=== PATIENT | male | born 1950 | race Hispanic/Latino ===

== ENCOUNTER 2019-08-19 00:34 | Observation (INO) | payer OTHER ==
[2019-08-19 01:20] LABS: BASOPHILS % (AUTO) 0.2 % (0.0-5.0); HEMATOCRIT 35.1 % (42-54); LYMPHOCYTES % (AUTO) 7.5 % (21.0-51.0); MEAN CORPUSCULAR HEMOGLOBIN 31.3 pg (27.0-33.0); MEAN CORPUSCULAR HGB CONC 35.3 g/dL (32.0-36.0); MEAN CORPUSCULAR VOLUME 88.6 fL (79-99); MONOCYTES % (AUTO) 6.2 % (3.0-13.0); NEUTROPHILS % (AUTO) 85.6 % (40.0-77.0); PLATELET COUNT (AUTO) 54 K/uL (130-400); RED BLOOD CELL COUNT(AUTO) 3.96 MIL/uL (4.50-6.20); RED CELL DISTRIBUTION WIDTH 13.5 % (11.0-15.5); WHITE BLOOD COUNT (AUTO) 5.8 K/uL (4.8-10.8)
[2019-08-19 01:27] LABS: INR 1.14 (0.85-1.15); PARTIAL THROMBOPLASTIN TIME 28.4 SEC (26.3-35.5); PROTHROMBIN TIME 12.3 SEC (9.6-11.6)
[2019-08-19 01:32] LABS: CARBON DIOXIDE 24 mmol/L (21-32); CHLORIDE 101 mmol/L (101-111); CREATININE 0.9 mg/dL (0.5-1.5); GLOMERULAR FILTR. RATE CALC 89 mL/min (>60); GLUCOSE,RANDOM 188 mg/dL (70-105); POTASSIUM 3.2 mmol/L (3.5-5.1); SODIUM SERUM 133 mmol/L (136-145); UREA NITROGEN, BLOOD 17 mg/dL (7-18)
[2019-08-19] MEDS ORDERED: ACETAMINOPHEN EXTRA STRENGTH 500 MG TABLET ONE (01:46)
[2019-08-19 01:53] LABS: APPEARANCE,URINE Clear (CLEAR); BILIRUBIN,URINE Small (NEGATIVE); COLOR,URINE Dark Yellow (YELLOW); GLUCOSE, URINE (UA) >=1000 mg/dL (NEGATIVE); KETONES,URINE Trace mg/dL (NEGATIVE); LEUKOCYTE ESTERASE ,URINE Trace (NEGATIVE); NITRATE,URINE Negative (NEGATIVE); OCCULT BLOOD,URINE Large (NEGATIVE); PROTEIN,URINE 300 mg/dL (NEGATIVE)
[2019-08-19 01:58] LABS: ALANINE AMINOTRANSFERASE 29 U/L (12-78); ALBUMIN 2.8 g/dL (3.5-5.0); ASPARTATE AMINOTRANSFERASE 28 U/L (10-37); BILIRUBIN,TOTAL 2.3 mg/dL (0.2-1.0); CREATINE KINASE, TOTAL 168 U/L (21-232); MYOGLOBIN 117 ng/mL (10-92); TOTAL PROTEIN, SERUM 6.4 g/dL (6.0-8.3); TROPONIN I < 0.04 ng/mL (0.00-0.06)
[2019-08-19 02:18] LABS: AMORPHOUS SEDIMENT,UR Many /LPF (None Seen); BACTERIA,URINE Few /HPF (None Seen); MUCUS,URINE Many LPF (None Seen); SQUAMOUS EPITHELIAL CELL,UR Moderate /HPF (0-2)
[2019-08-19 02:26] LABS: PLATELET MORPHOLOGY COMMENT DECREASED
[2019-08-19] MEDS ORDERED: CLINDAMYCIN 600 MG/D5% WATER 50 ML IV ONE (02:51)
[2019-08-19] MEDS ORDERED: CEFTRIAXONE SODIUM 1 GM ONE (02:51)
[2019-08-19] MEDS ORDERED: POTASSIUM BICARB/CIT AC 25 MEQ TABLET.EFF ONE (04:03)
[2019-08-19] MEDS ORDERED: ONDANSETRON HCL 4 MG/2 ML VIAL IVP PRN (06:30)
[2019-08-19] MEDS ORDERED: HYDRALAZINE HCL 20 MG/ML VIAL IV PRN (06:30)
[2019-08-19] MEDS ORDERED: ACETAMINOPHEN 325 MG TAB PO PRN (06:30)
[2019-08-19] MEDS ORDERED: TEMAZEPAM 7.5 MG CAPSULE PO PRN (06:30)
[2019-08-19] MEDS: INSULIN R PO SS1 SQ SCH ×3 (07:30→21:00)
--- NOTE | 2019-08-19 07:30 | NUR ---
GLUCOMETER NOT RECORDED BY PM SHIFT. NO INSULIN GIVEN. PER PROTOCOL.
[2019-08-19] MEDS: FAMOTIDINE 20MG TAB 20 MG TAB PO SCH ×2 (09:00→20:57)
[2019-08-19] MEDS: ENOXAPARIN SODIUM 40 MG/0.4 ML SYRINGE SQ SCH (09:00)
--- NOTE | 2019-08-19 09:00 | NUR ---
ANEUDY HELD, PLT. COUNT IS 54.
[2019-08-19 09:04] VITALS: BP 137/70
[2019-08-19] MEDS ORDERED: CLINDAMYCIN 900 MG/D5% WATER 50 ML IV SCH (10:00)
--- NOTE | 2019-08-19 12:00 | NUR ---
FOUND ON FLOOR IN BATHROOM, STATES GOT UP TO GO TO BR AND SLIPPED, IV DISLODGED, NO EVIDENCE OF ANY SKIN BREAKDOWN, ABLETO MOVE ALL LIMBS WITHOUT ANY > DISCOMFORT. STATES HE NEEDED TO URINATE THATS WHY HE GOT UP. NOTIFIED SON SUMAYA GERARDO AT [phone].ALSO NOTIFIED DEWAYNE RESENDIZP, ORDERS GIVEN AND ENTERED.
[2019-08-19] MEDS ORDERED: POTASSIUM CHLORIDE 20MEQ/100ML 100 ML IV PRN (12:15)
[2019-08-19] MEDS ORDERED: LIDOCAINE HCL-MPF 1% 2ML VIAL IV PRN (12:15)
[2019-08-19 12:52] VITALS: BP 150/69
--- NOTE | 2019-08-19 13:00 | NUR ---
1:[address] TO MONITOR PT[address] BED ALARM ALSO IN USE,PT. STATES HE SLIPPED AND COULDN'T BREAK FALL,STATES HE IS OK AND WILL CALL FOR ASST. SON HAS CALLED FOR UPDATES FREQUENTLY. STATES PT. ALSO FELL AT HOME LAST WEEK. CONSULT WITH DR. WILDER IN PLACE
--- NOTE | 2019-08-19 14:30 | NUR ---
[facility] CM spoke to pt's spouse Jeannette Dawson discussed dc plans. Pt is independent prior to admission, lives at home with spouse. Denies any equipments/services. Feels safe to go back home, spouse and family able to assist with transportation and needs as necessary. DC plan to home once stable. CM to cont to follow up. Addendum: 08/19/19 at 1431 by REZA PATRICIO LVN CM Amended: Links added.
--- NOTE | 2019-08-19 14:35 | NUR ---
TO RAD DEPT. NOW FOR HEAD CT.
[2019-08-19 19:48] VITALS: BP_SYST 141; BP_SYST 144; BP_DIAS 71; BP_DIAS 82
[2019-08-19 19:49] VITALS: BP 146/84
[2019-08-19 19:54] VITALS: BP_SYST 122; BP_SYST 140; BP_DIAS 65; BP_DIAS 86
[2019-08-19 23:30] VITALS: BP 106/61
--- NOTE | 2019-08-19 23:32 | NUR ---
MOVED Pt moved to rm 320,report given to rakesh ibarra.pt has sitter at bedside.
--- NOTE | 2019-08-19 23:47 | NUR ---
Received patient to room 320, checked neuro's within normal limits, oriented x3. Patient with redness, and +2 swelling to LLE. Patient also has discoloration to RLE, and +1 pitting edema. Patient denies any discomfort at this time, encouraged to call as needed. Bed alarm in use and one to one sitter at bedside. Patient denies any discomfort at this time.
[2019-08-20 03:10] VITALS: BP 146/71
[2019-08-20 05:38] LABS: HEMATOCRIT 32.5 % (42-54); MEAN CORPUSCULAR HEMOGLOBIN 31.1 pg (27.0-33.0); MEAN CORPUSCULAR HGB CONC 35.1 g/dL (32.0-36.0); MEAN CORPUSCULAR VOLUME 88.8 fL (79-99); RED BLOOD CELL COUNT(AUTO) 3.66 MIL/uL (4.50-6.20); RED CELL DISTRIBUTION WIDTH 13.3 % (11.0-15.5); WHITE BLOOD COUNT (AUTO) 3.9 K/uL (4.8-10.8)
[2019-08-20 06:05] LABS: CREATININE 0.8 mg/dL (0.5-1.5); POTASSIUM 3.4 mmol/L (3.5-5.1)
[2019-08-20] MEDS: INSULIN R PO SS1 SQ SCH ×3 (07:02→16:30)
[2019-08-20 08:00] VITALS: BP 140/70
[2019-08-20 08:02] VITALS: BP 161/82
[2019-08-20 08:03] VITALS: BP 165/75
[2019-08-20] MEDS ORDERED: CEFTRIAXONE SODIUM 1 GM IVP SCH (09:00)
[2019-08-20] MEDS: FAMOTIDINE 20MG TAB 20 MG TAB PO SCH (09:00)
[2019-08-20] MEDS: ENOXAPARIN SODIUM 40 MG/0.4 ML SYRINGE SQ SCH (09:33)
--- NOTE | 2019-08-20 10:09 | NUR ---
CHART CHECK COMPLETED. Pt IS A 69 Y.O. MALE ADMITTED SECONDARY TO CELLULITIS AND UTI. Pt HAS A PAST MEDICAL HISTORY SIGNIFICANT FOR DM II, CVA, CELLULITIS, THROMBOCYTOPENIA, HYPONATREMIA, HYPOKALEMIA. NO OVERT S/S OF ASPIRATION REPORTED AT THIS TIME. Pt WITH 1:1 SITTER. PLEASE REQUEST SPEECH/SWALLOW EVALUATION IF Pt PRESENTS WITH +S/S OF ASPIRATION SUCH COUGHING, WET VOCAL QUALITY, OR THROAT CLEAR. Addendum: 08/20/19 at 1018 by CARLTON DAO, [facility] Amended: Links added.
[2019-08-20 11:33] VITALS: BP 125/53
[2019-08-20] MEDS ORDERED: ATOR40TA71 PO ×2 (15:48)
[2019-08-20] MEDS ORDERED: INSU100I13 SQ ×2 (15:48)
[2019-08-20] MEDS ORDERED: AMLO5TAB9 PO ×2 (15:48)
[2019-08-20] MEDS ORDERED: FURO20TA4 PO ×2 (15:48)
[2019-08-20] MEDS ORDERED: CEFD300C3 PO ×2 (15:49)
[2019-08-20 16:00] VITALS: BP 155/72
--- NOTE | 2019-08-20 16:32 | NUR ---
CM Note: [facility] pending approval CM met with pt discussed MD ever MEYERS for PT, agreeable. Aware will have to follow up w/PCP as PCP will have to sign off order. Informed pt will send order and clinicals to [facility] to give heads up. HCD will follow up w/PCP for any continuity of care order. Pt safe to DC via private car. Primary nurse aware. CM to cont to follow up. Faxed order, clinicals to [facility], confirmation received. Pt pending approval for HH. CM to con to follow up.
--- NOTE | 2019-08-20 19:17 | NUR ---
CALLED TO CLARIFY BEFORE DISCHARGE ON BLOOD CULTURES ONE SET SHOWING GRAM POS COCCI TAKEN ON 08/18. SPOKE WITH Eric GARCIA ,PER SMALL MACHINE BINDERY OPERATOR REVIEW ON MICRO OTHER SETS NEGATIVE AND MOST LIKELY A CONTAMINATE. PER SMALL MACHINE BINDERY OPERATOR SENT ANTIBIOTIC SCRIPT ELECTRONICALLY TO PATIENTS PHARMACY .
--- NOTE | 2019-08-20 20:11 | NUR ---
DISCHARGE INSTRUCTION PROVIDED TO PATIENT ALONG WITH INSTRUCTION TO ZIGZAG TUNNEL ELASTIC OPERATOR PRESCRIPTION .CALLED AND SPOKE WITH ANAIS HERE TO ZIGZAG TUNNEL ELASTIC OPERATOR PATIENT . ALSO LET HIM KNOW TO MAKE SURE TO ZIGZAG TUNNEL ELASTIC OPERATOR ANTIBIOTIC SCRIPT AT [facility] IN [facility] . PER PATIENT AND SON VERBALIZE UNDERSTANDING..
== END 2019-08-20 20:00 | disposition home or self-care (01) ==
LOC: EDH 00:34 → EDHIP 05:28 → 3BH 05:49 → 3CH 23:30
PROVIDERS: ADMIT Internal Medicine Critical Care Medicine; ATTEND Internal Medicine Critical Care Medicine
DX: N39.0 Urinary tract infection, site not specified (principal); L03.116 Cellulitis of left lower limb; E11.9 Type 2 diabetes mellitus without complications; D69.6 Thrombocytopenia, unspecified; E78.5 Hyperlipidemia, unspecified; E87.1 Hypo-osmolality and hyponatremia; H53.2 Diplopia; Z87.891 Personal history of nicotine dependence; E87.6 Hypokalemia; M79.662 Pain in left lower leg; R55 Syncope and collapse; Z79.4 Long term (current) use of insulin; Z79.899 Other long term (current) drug therapy; Z86.73 Personal history of transient ischemic attack (TIA), and cerebral infarction without residual deficits
CPT/HCPCS: 36415 ×2; 70450 ×2; 70551; 71045 ×2; 71250; 80048; 80053; 81001; 82550; 82728; 82948 ×6; 83605 ×2; 83874; 84145; 84484; 85025; 85027; 85378; 85610; 85730; 86140; 87040 ×4; 87077; 87088; 87186; 93005; 93306; 93356; 93880; 93970; 96365; 96372; 96375; 99285; G0378 ×20; J0696 ×2; J1650; J3490 ×2

== ENCOUNTER → 2019-08-27 | Outpatient (CLI) | payer OTHER ==
[~2019-08-27] MED LIST: AMLO5TAB9 PO; ATOR40TA71 PO; CEFD300C3 PO; FURO20TA4 PO; FURO40TA7 PO; HYDR12.54 PO; INSU100I13 SQ; LISI40TA4 PO; POTA20TA82 PO; SPIR50TA5 PO; TAMS-1 PO
== END | disposition home or self-care (01) ==
LOC: SHCH 13:19
PROVIDERS: ATTEND Internal Medicine Cardiovascular Disease
DX: I87.2 Venous insufficiency (chronic) (peripheral) (principal)
CPT/HCPCS: 93925; 93970

== ENCOUNTER 2019-10-07 16:47 | Observation (INO) | payer OTHER ==
[~2019-10-07] VITALS: Ht 162.6 cm; Wt 116.4 kg
[~2019-10-07 16:47] MED LIST changes: -FURO40TA7 PO; -HYDR12.54 PO; -LISI40TA4 PO; -POTA20TA82 PO; -SPIR50TA5 PO; -TAMS-1 PO
[2019-10-07 17:22] LABS: BASOPHILS % (AUTO) 0.7 % (0.0-5.0); EOSINOPHILS % (AUTO) 6.5 % (0.0-8.0); LYMPHOCYTES % (AUTO) 25.3 % (21.0-51.0); MEAN CORPUSCULAR HEMOGLOBIN 31.7 pg (27.0-33.0); MEAN CORPUSCULAR HGB CONC 35.6 g/dL (32.0-36.0); MEAN CORPUSCULAR VOLUME 89.1 fL (79-99); MONOCYTES % (AUTO) 8.6 % (3.0-13.0); NEUTROPHILS % (AUTO) 58.6 % (40.0-77.0); PLATELET COUNT (AUTO) 88 K/uL (130-400); RED BLOOD CELL COUNT(AUTO) 3.03 MIL/uL (4.50-6.20); RED CELL DISTRIBUTION WIDTH 14.1 % (11.0-15.5); WHITE BLOOD COUNT (AUTO) 2.9 K/uL (4.8-10.8)
[2019-10-07 17:37] LABS: ALBUMIN 1.6 g/dL (3.5-5.0); BILIRUBIN,TOTAL 0.7 mg/dL (0.2-1.0); TOTAL PROTEIN, SERUM 5.3 g/dL (6.0-8.3)
[2019-10-07 17:40] LABS: B-TYPE NATRIURETIC PEPTIDE 94 pg/mL (0-100)
[2019-10-07] MEDS ORDERED: FUROSEMIDE 10 MG/ML 4ML VIAL ONE (17:45)
[2019-10-07 18:01] LABS: BAND NEUTROPHILS % (MANUAL) 1 % (0-2); EOSINOPHILS % (MANUAL) 5 % (1-6); LYMPHOCYTES % (MANUAL) 23 % (22-44); MONOCYTES % (MANUAL) 4 % (2-9); SEGMENTED NEUTROPHILS % 67 % (40-70)
[2019-10-07 18:02] LABS: MAN.DIFF COMMENT-IMPRESSION MANUAL DIFFERENTIAL
[2019-10-07] MEDS ORDERED: MORPHINE SULFATE 2 MG/ML 1ML SYG IV PRN (21:30)
[2019-10-07] MEDS ORDERED: LACTULOSE 20 GM/30 ML UDCUP PO PRN (21:30)
[2019-10-07] MEDS ORDERED: ONDANSETRON HCL 4 MG/2 ML VIAL IV PRN (21:30)
[2019-10-07] MEDS ORDERED: ACETAMINOPHEN 325 MG TAB PO PRN (21:30)
[2019-10-07] MEDS ORDERED: HYDRALAZINE HCL 20 MG/ML VIAL IV PRN (21:30)
[2019-10-07 22:37] LABS: INR 0.99 (0.85-1.15); PROTHROMBIN TIME 10.7 SEC (9.6-11.6)
--- NOTE | 2019-10-07 22:50 | NUR ---
Admission note: Admitted to floor via stretcher. Fully awake and responsive. AOX4. Placed in bed according to pt. comfort. VS checked and recorded. Assessment done. ( See CPOE flow chart for full assessment) Denies pain / discomfort. Verbalized he felt better this time. Has IV site #20 gauge to left hand attached to SL - patent and intact. Plan of care initiated. Hooked to tele at bedside as ordered with SR 70's. US Abdomen and scrotum done as ordered at bedside. Has pinkish-red discoloration to bilat. lower leg. Venous doppler to bilat LE done in ER. Pt verbalized that he has it since then and it comes and goes. Observed for any unusualities. No apparent distress noted. Cared for and needs attended.
[2019-10-07 22:52] VITALS: BP 159/72
[2019-10-07] MEDS ORDERED: TAMS-1 PO (23:46)
[2019-10-07] MEDS ORDERED: SPIR50TA5 PO (23:46)
[2019-10-07] MEDS ORDERED: POTA20TA82 PO (23:46)
[2019-10-07] MEDS ORDERED: LISI40TA4 PO (23:46)
[2019-10-07] MEDS ORDERED: FURO40TA7 PO (23:46)
[2019-10-07] MEDS ORDERED: HYDR12.54 PO (23:46)
[2019-10-08 03:36] VITALS: BP 124/61
[2019-10-08 04:00] LABS: BASOPHILS % (AUTO) 0.4 % (0.0-5.0); EOSINOPHILS % (AUTO) 6.6 % (0.0-8.0); LYMPHOCYTES % (AUTO) 26.2 % (21.0-51.0); MEAN CORPUSCULAR HGB CONC 35.2 g/dL (32.0-36.0); MEAN CORPUSCULAR VOLUME 88.1 fL (79-99); MONOCYTES % (AUTO) 9.8 % (3.0-13.0); NEUTROPHILS % (AUTO) 56.6 % (40.0-77.0); PLATELET COUNT (AUTO) 75 K/uL (130-400); RED BLOOD CELL COUNT(AUTO) 2.61 MIL/uL (4.50-6.20); WHITE BLOOD COUNT (AUTO) 2.6 K/uL (4.8-10.8)
[2019-10-08 04:15] LABS: ALBUMIN 1.3 g/dL (3.5-5.0); BILIRUBIN,TOTAL 0.6 mg/dL (0.2-1.0); CREATININE 0.9 mg/dL (0.5-1.5); MAGNESIUM 1.7 mg/dL (1.80-2.40); POTASSIUM 3.6 mmol/L (3.5-5.1); TOTAL PROTEIN, SERUM 4.5 g/dL (6.0-8.3)
[2019-10-08] MEDS: INSULIN HUMULIN R 100 UNIT/ML 3ML SQ SCH ×4 (05:42→20:23)
[2019-10-08 07:49] VITALS: BP 133/59
[2019-10-08] MEDS ORDERED: ENOXAPARIN SODIUM 40 MG/0.4 ML SYRINGE SQ SCH (09:00)
[2019-10-08] MEDS ORDERED: FAMOTIDINE 20MG TAB 20 MG TAB PO SCH (09:00)
[2019-10-08] MEDS ORDERED: ASPIRIN 81 MG EC TAB PO SCH (09:00)
--- NOTE | 2019-10-08 09:39 | NUR ---
CHART CHECK COMPLETED. Pt IS A 69 Y.O. MALE ADMITTED SECONDARY TO ANASARCA, CIRRHOSIS. Pt HAS A PAST MEDICAL HISTORY SIGNIFICANT FOR DMII, MORBID OBESITY, HYPERTENSION, THROMBOCYTOPENIA, TIA/CVA, DYSLIPIDEMIA. Pt CURRENTLY ON REGULAR TEXTURE,THIN LIQUID DIET (CONSISTENT CARB). PLEASE REQUEST FORMAL SKILLED SPEECH/SWALLOW EVALUATION IF Pt PRESENTS WITH +S/S OF ASPIRATION SUCH COUGH RESPONSE, THROAT CLEAR, OR WET VOCAL QUALITY DURING P.O. Addendum: 10/08/19 at 0941 by CARLTON DAO, [facility] Amended: Links added.
[2019-10-08] MEDS: FUROSEMIDE 10 MG/ML 4ML VIAL IVP SCH ×2 (10:10→20:25)
[2019-10-08] MEDS: LOSARTAN 50 MG TABLET PO SCH (10:10)
[2019-10-08] MEDS: FAMOTIDINE 20MG TAB 20 MG TAB PO SCH ×2 (10:10→20:25)
[2019-10-08 11:33] VITALS: BP 139/68
[2019-10-08] MEDS: MAGNESIUM 2GM PREMIX 50ML 50 ML IV SCH (16:38)
[2019-10-08 16:48] VITALS: BP 140/72
[2019-10-08 20:29] VITALS: BP 155/59
[2019-10-08] MEDS ORDERED: TAMSULOSIN HCL 0.4 MG CAP.ER.24H PO SCH (21:00)
[2019-10-08] MEDS ORDERED: ATORVASTATIN CALCIUM 10 MG TABLET PO SCH (21:00)
[2019-10-09 00:26] VITALS: BP 132/59
[2019-10-09 03:49] LABS: BASOPHILS % (AUTO) 0.4 % (0.0-5.0); EOSINOPHILS % (AUTO) 6.9 % (0.0-8.0); HEMATOCRIT 23.6 % (42-54); LYMPHOCYTES % (AUTO) 27.7 % (21.0-51.0); MEAN CORPUSCULAR HEMOGLOBIN 31.7 pg (27.0-33.0); MEAN CORPUSCULAR VOLUME 88.1 fL (79-99); PLATELET COUNT (AUTO) 75 K/uL (130-400); RED BLOOD CELL COUNT(AUTO) 2.68 MIL/uL (4.50-6.20); RED CELL DISTRIBUTION WIDTH 13.9 % (11.0-15.5); WHITE BLOOD COUNT (AUTO) 2.6 K/uL (4.8-10.8)
[2019-10-09 03:52] VITALS: BP 124/67
[2019-10-09 03:56] LABS: B-TYPE NATRIURETIC PEPTIDE 124 pg/mL (0-100)
[2019-10-09 04:04] LABS: CREATININE 0.9 mg/dL (0.5-1.5); MAGNESIUM 1.8 mg/dL (1.80-2.40); PHOSPHORUS 3.7 mg/dL (2.5-4.9); POTASSIUM 3.4 mmol/L (3.5-5.1)
--- NOTE | 2019-10-09 04:15 | NUR ---
Magnesium result: 1.8 Covered per protocol.
[2019-10-09] MEDS: MAGNESIUM 2GM PREMIX 50ML 50 ML IV SCH (04:19)
[2019-10-09] MEDS: INSULIN HUMULIN R 100 UNIT/ML 3ML SQ SCH ×3 (06:41→16:30)
[2019-10-09 08:00] VITALS: BP 143/59
[2019-10-09] MEDS ORDERED: AMLODIPINE BESYLATE 5 MG TAB PO SCH (09:00)
[2019-10-09] MEDS ORDERED: SPIRONOLACTONE 25 MG TAB PO SCH (09:00)
[2019-10-09] MEDS ORDERED: LISINOPRIL 40 MG TABLET PO SCH (09:00)
[2019-10-09] MEDS ORDERED: INSULIN HUMULIN 70/30 100 UNIT/ML 3ML SQ SCH (09:00)
[2019-10-09] MEDS ORDERED: HYDROCHLOROTHIAZIDE 25 MG TABLET PO SCH (09:00)
[2019-10-09] MEDS: FUROSEMIDE 10 MG/ML 4ML VIAL IVP SCH (10:09)
[2019-10-09] MEDS: LOSARTAN 50 MG TABLET PO SCH (10:10)
[2019-10-09] MEDS: FAMOTIDINE 20MG TAB 20 MG TAB PO SCH (10:11)
[2019-10-09 12:00] VITALS: BP 137/65
[2019-10-09] MEDS ORDERED: FURO40TA7 PO (14:12)
--- NOTE | 2019-10-09 14:55 | NUR ---
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 KATHY faxed Cirrhosis (3 pages) and Diabetes (4 pages) Nutrition education to [phone]). Pending fax. RN to be notified. NUTRITION NOTE: Pt admitted with Anasarca, Cirrhosis. LLE 2+ edema. Recommend Low sodium diet order, 6 small meals, 60mL ProMod BID. Addendum: 10/09/19 at [address] Amended: Links added.
--- NOTE | 2019-10-09 17:58 | NUR ---
CHART REVIEWED, INCLUDING PT NOTES STATES SAFE FOR DISCHARGE TO HOME- PATIENT STATES MOBILITY IMPROVING. NO TRIGGERS TO CASE MANAGEMENT DETAILED CM ASSESSMENT DEFERRED Addendum: 10/09/19 at 1801 by TRUNG CHAMBERLAIN RN CM Amended: Links added.
== END 2019-10-09 18:15 | disposition home or self-care (01) ==
LOC: EDH 16:47 → INTOOBSV 19:28 → EDHIP 19:28 → 3BH 22:02
PROVIDERS: ADMIT Internal Medicine Critical Care Medicine; ATTEND Internal Medicine Critical Care Medicine
DX: K74.60 Unspecified cirrhosis of liver (principal); E11.9 Type 2 diabetes mellitus without complications; E66.01 Morbid (severe) obesity due to excess calories; I10 Essential (primary) hypertension; D69.6 Thrombocytopenia, unspecified; R60.1 Generalized edema; E78.5 Hyperlipidemia, unspecified; Z86.73 Personal history of transient ischemic attack (TIA), and cerebral infarction without residual deficits; Z79.4 Long term (current) use of insulin; Z79.899 Other long term (current) drug therapy; Z87.891 Personal history of nicotine dependence
CPT/HCPCS: 36415 ×3; 71045 ×2; 76705; 76870; 80048; 80053 ×2; 82948 ×6; 83735 ×2; 83880 ×3; 84100; 84484 ×3; 85025 ×3; 85610; 85730; 93005; 93970; 94660; 96365; 96366; 96375; 96376 ×2; 97039 ×2; 97116 ×2; 97161; 99285; G0378 ×6; G8978; G8979; G8980; G8981; G8982; G8983; J1815; J1940 ×4; J3475 ×2

== ENCOUNTER → 2019-10-29 | Outpatient (CLI) | payer OTHER ==
[~2019-10-29] MED LIST changes: -CEFD300C3 PO; -FURO20TA4 PO; +FURO40TA7 PO; +HYDR12.54 PO; +LISI40TA4 PO; +POTA20TA82 PO; +SPIR50TA5 PO; +TAMS-1 PO
== END | disposition home or self-care (01) ==
LOC: SHCH 14:09
PROVIDERS: ATTEND Internal Medicine Cardiovascular Disease
DX: Z09 Encounter for follow-up examination after completed treatment for conditions other than malignant neoplasm (principal)
CPT/HCPCS: 93971

== ENCOUNTER → 2019-11-25 | Outpatient (CLI) | payer OTHER | END | disposition home or self-care (01) | LOC: SHCH 07:55 | PROVIDERS: ATTEND Internal Medicine Cardiovascular Disease | DX: Z09 Encounter for follow-up examination after completed treatment for conditions other than malignant neoplasm (principal); I87.2 Venous insufficiency (chronic) (peripheral) | CPT/HCPCS: 93971 ==

== ENCOUNTER 2020-05-12 11:45 | Inpatient (IN) | payer OTHER ==
[~2020-05-12] VITALS: Ht 162.6 cm; Wt 114.1 kg
[~2020-05-12 11:45] MED LIST changes: +AMLO-257 PO; -AMLO5TAB9 PO; -LISI40TA4 PO; +LISI40TA9 PO; +POTA-202 PO; -POTA20TA82 PO
[2020-05-12 12:18] LABS: BASOPHILS % (AUTO) 0.5 % (0.0-5.0); EOSINOPHILS % (AUTO) 8.5 % (0.0-8.0); HEMATOCRIT 25.9 % (42-54); LYMPHOCYTES % (AUTO) 19.3 % (21.0-51.0); MEAN CORPUSCULAR VOLUME 91.2 fL (79-99); MONOCYTES % (AUTO) 8.5 % (3.0-13.0); PLATELET COUNT (AUTO) 90 K/uL (130-400); RED BLOOD CELL COUNT(AUTO) 2.84 MIL/uL (4.50-6.20); RED CELL DISTRIBUTION WIDTH 13.9 % (11.0-15.5); WHITE BLOOD COUNT (AUTO) 4.3 K/uL (4.8-10.8)
[2020-05-12 12:31] LABS: B-TYPE NATRIURETIC PEPTIDE 688 pg/mL (0-100)
[2020-05-12 12:34] LABS: CREATININE 1.9 mg/dL (0.5-1.5); POTASSIUM 4.6 mmol/L (3.5-5.1)
[2020-05-12 12:38] LABS: ALBUMIN 1.7 g/dL (3.5-5.0); BILIRUBIN,TOTAL 0.9 mg/dL (0.2-1.0); TOTAL PROTEIN, SERUM 5.3 g/dL (6.0-8.3)
[2020-05-12 12:43] LABS: INR 1.13 (0.85-1.15); PROTHROMBIN TIME 11.6 SEC (9.6-11.6)
[2020-05-12] MEDS ORDERED: CEFTRIAXONE 1G VIAL ONE (13:28)
[2020-05-12] MEDS ORDERED: ALBUTEROL INHALER 90MCG/INH IH ONE (13:28)
[2020-05-12] MEDS ORDERED: AZITHROMYCIN 250 MG TABLET PO ONE (13:29)
[2020-05-12] MEDS ORDERED: 0.9%NACL 50ML 50 ML IV ONE (13:30)
[2020-05-12] MEDS ORDERED: FUROSEMIDE 40MG VIAL ONE (14:15)
[2020-05-12] MEDS ORDERED: ZOSYN 3.375GM+NS 50ML 50 ML IV ONE (14:59)
[2020-05-12 15:31] LABS: APPEARANCE,URINE Clear (CLEAR); BILIRUBIN,URINE Negative (NEGATIVE); COLOR,URINE Yellow (YELLOW); GLUCOSE, URINE (UA) Negative (NEGATIVE); KETONES,URINE Negative (NEGATIVE); LEUKOCYTE ESTERASE ,URINE Negative (NEGATIVE); NITRATE,URINE Negative (NEGATIVE); OCCULT BLOOD,URINE Large (NEGATIVE); PROTEIN,URINE 300 mg/dL (NEGATIVE); UROBILINOGEN,URINE 0.2 mg/dL (0.2-1.0)
[2020-05-12] MEDS ORDERED: ACETAMINOPHEN 325 MG TAB PO PRN (16:00)
[2020-05-12 16:32] LABS: BACTERIA,URINE Rare /HPF (None Seen); YEAST,URINE BUDDING Few /HPF (None Seen)
[2020-05-12 16:33] LABS: SQUAMOUS EPITHELIAL CELL,UR Rare /HPF (0-2)
[2020-05-12] MEDS: FUROSEMIDE 40MG VIAL IVP SCH (21:00)
[2020-05-12 21:30] VITALS: BP 179/83
[2020-05-13] VITALS (8 sets, daily range): BP systolic 149–175; BP diastolic 67–86
[2020-05-13] MEDS: PANTOPRAZOLE 40 MG TAB DR PO SCH ×3 (01:45→20:45)
[2020-05-13] MEDS: ZOSYN 3.375GM+NS 50ML 50 ML IV SCH ×4 (01:46→21:01)
[2020-05-13] MEDS: SPIRONOLACTONE 25 MG TAB PO SCH ×3 (01:46→20:45)
[2020-05-13] MEDS: LACTULOSE 20 GM/30 ML UDCUP PO SCH ×3 (01:47→20:46)
[2020-05-13] MEDS ORDERED: LABETALOL 20MG VIAL IV ONE (02:09)
[2020-05-13] MEDS ORDERED: LABETALOL 20MG VIAL IV SCH (02:15)
[2020-05-13 05:51] LABS: MEAN CORPUSCULAR HEMOGLOBIN 30.7 pg (27.0-33.0); MEAN CORPUSCULAR HGB CONC 34.1 g/dL (32.0-36.0); RED CELL DISTRIBUTION WIDTH 13.9 % (11.0-15.5); WHITE BLOOD COUNT (AUTO) 4.6 K/uL (4.8-10.8)
[2020-05-13 05:53] LABS: RETICULOCYTE % (AUTO) 2.9 % (0.42-2.23)
[2020-05-13 06:14] LABS: % IRON SATURATION 49.7 % (30-44)
[2020-05-13 06:36] LABS: ALBUMIN 1.7 g/dL (3.5-5.0); POTASSIUM 3.8 mmol/L (3.5-5.1); TOTAL PROTEIN, SERUM 5.1 g/dL (6.0-8.3)
[2020-05-13] MEDS: FUROSEMIDE 40MG VIAL IVP SCH ×2 (08:50→20:45)
[2020-05-13] MEDS ORDERED: AMLODIPINE 5 MG TAB PO SCH (10:38)
[2020-05-13] MEDS ORDERED: TIZA2CAP9 PO (12:56)
[2020-05-13] MEDS ORDERED: VITAMIN D PO (12:59)
[2020-05-13] MEDS ORDERED: FURO20TA6 PO (13:01)
[2020-05-13] MEDS: SOLU-MEDROL 40MG VIAL IVP SCH (20:45)
[2020-05-14 04:23] VITALS: BP 152/62
[2020-05-14] MEDS: ZOSYN 3.375GM+NS 50ML 50 ML IV SCH ×3 (04:40→20:23)
[2020-05-14 05:23] LABS: BASOPHILS % (AUTO) 0.3 % (0.0-5.0); EOSINOPHILS % (AUTO) 0.3 % (0.0-8.0); HEMATOCRIT 26.8 % (42-54); LYMPHOCYTES % (AUTO) 14.3 % (21.0-51.0); MEAN CORPUSCULAR HEMOGLOBIN 31.5 pg (27.0-33.0); MEAN CORPUSCULAR HGB CONC 34.3 g/dL (32.0-36.0); MEAN CORPUSCULAR VOLUME 91.8 fL (79-99); MONOCYTES % (AUTO) 1.7 % (3.0-13.0); NEUTROPHILS % (AUTO) 82.8 % (40.0-77.0); PLATELET COUNT (AUTO) 100 K/uL (130-400); RED BLOOD CELL COUNT(AUTO) 2.92 MIL/uL (4.50-6.20); WHITE BLOOD COUNT (AUTO) 3.6 K/uL (4.8-10.8)
[2020-05-14 07:52] VITALS: BP 178/75
[2020-05-14 11:14] VITALS: BP 185/75
[2020-05-14] MEDS: LABETALOL 20MG VIAL IV PRN (12:20)
[2020-05-14] MEDS: PANTOPRAZOLE 40 MG TAB DR PO SCH ×2 (12:22→20:23)
[2020-05-14] MEDS: SPIRONOLACTONE 25 MG TAB PO SCH ×2 (12:22→20:23)
[2020-05-14] MEDS: LACTULOSE 20 GM/30 ML UDCUP PO SCH ×2 (12:23→20:22)
[2020-05-14] MEDS: SOLU-MEDROL 40MG VIAL IVP SCH ×2 (12:24→20:23)
[2020-05-14] MEDS: FUROSEMIDE 40MG VIAL IVP SCH ×2 (12:26→20:24)
[2020-05-14 13:52] VITALS: BP 147/70
[2020-05-14 16:06] VITALS: BP 171/71
[2020-05-14 19:41] VITALS: BP 167/66
[2020-05-14] MEDS: ATORVASTATIN 10 MG TABLET PO SCH (20:23)
[2020-05-14] MEDS: HYDROCORTISONE 25 MG SUPPOSITORY PR SCH (21:06)
[2020-05-15] VITALS (9 sets, daily range): BP systolic 107–172; BP diastolic 51–68
[2020-05-15 05:32] LABS: HEMATOCRIT 30.2 % (42-54); MEAN CORPUSCULAR HEMOGLOBIN 30.4 pg (27.0-33.0); MEAN CORPUSCULAR HGB CONC 33.4 g/dL (32.0-36.0); RED BLOOD CELL COUNT(AUTO) 3.32 MIL/uL (4.50-6.20); RED CELL DISTRIBUTION WIDTH 14.2 % (11.0-15.5)
[2020-05-15] MEDS: ZOSYN 3.375GM+NS 50ML 50 ML IV SCH ×3 (05:52→20:46)
[2020-05-15 05:57] LABS: ALBUMIN 1.8 g/dL (3.5-5.0); CREATININE 2.6 mg/dL (0.5-1.5); MAGNESIUM 2.3 mg/dL (1.80-2.40); PHOSPHORUS 5.4 mg/dL (2.5-4.9); POTASSIUM 3.8 mmol/L (3.5-5.1); TOTAL PROTEIN, SERUM 5.6 g/dL (6.0-8.3)
[2020-05-15] MEDS ORDERED: ALBUMIN (HUMAN) 25% 200 ML IV SCH (06:00)
[2020-05-15] MEDS: PANTOPRAZOLE 40 MG TAB DR PO SCH ×2 (09:04→20:46)
[2020-05-15] MEDS: FUROSEMIDE 40MG VIAL IVP SCH (09:04)
[2020-05-15] MEDS: SPIRONOLACTONE 25 MG TAB PO SCH (09:04)
[2020-05-15] MEDS: AMLODIPINE 5 MG TAB PO SCH (09:04)
[2020-05-15] MEDS: TAMSULOSIN HCL 0.4 MG CAP.ER.24H PO SCH (09:04)
[2020-05-15] MEDS: LACTULOSE 20 GM/30 ML UDCUP PO SCH ×2 (09:04→21:00)
[2020-05-15] MEDS: HYDROCORTISONE 25 MG SUPPOSITORY PR SCH (09:05)
[2020-05-15] MEDS: SOLU-MEDROL 40MG VIAL IVP SCH ×2 (09:05→20:46)
[2020-05-15] MEDS: IPRATROPIUM/ALBUTEROL SULFATE 3 ML SOLUTION IH SCH ×3 (13:54→23:55)
[2020-05-15 14:25] LABS: APPEARANCE BODY FLUID SLIGHTLY CLOUDY (CLEAR); COLOR,BODY FLUID COLORLESS (LT YELLOW); SPECIMENTYPE,BODY FLUID ASCITES; TOTAL VOLUME,BODY FLUID 1500 mL
[2020-05-15 14:26] LABS: BODY FLUID RBC 48 /cu. mm.; BODY FLUID WBC 46 /cu. mm.
[2020-05-15 14:31] LABS: BF LYMPHOCYTE 79 %; BF MONOCYTE 16 %
[2020-05-15] MEDS: ALBUMIN (HUMAN) 25% 50 ML IV SCH ×2 (14:38→22:23)
[2020-05-15] MEDS: ATORVASTATIN 10 MG TABLET PO SCH (20:46)
[2020-05-15] MEDS: CEFTRIAXONE 1G VIAL IVP SCH (22:22)
[2020-05-16 03:31] VITALS: BP 154/64
[2020-05-16] MEDS: ALBUMIN (HUMAN) 25% 50 ML IV SCH ×2 (05:44→14:13)
[2020-05-16] MEDS: IPRATROPIUM/ALBUTEROL SULFATE 3 ML SOLUTION IH SCH ×3 (06:14→18:37)
[2020-05-16 07:35] LABS: CREATININE 2.9 mg/dL (0.5-1.5)
[2020-05-16 08:00] VITALS: BP 157/68
[2020-05-16] MEDS: LACTULOSE 20 GM/30 ML UDCUP PO SCH ×2 (09:00→23:57)
[2020-05-16] MEDS: TAMSULOSIN HCL 0.4 MG CAP.ER.24H PO SCH (11:32)
[2020-05-16] MEDS: PANTOPRAZOLE 40 MG TAB DR PO SCH ×2 (11:32→23:58)
[2020-05-16] MEDS: AMLODIPINE 5 MG TAB PO SCH (11:33)
[2020-05-16] MEDS: HYDROCORTISONE 25 MG SUPPOSITORY PR SCH (11:33)
[2020-05-16 12:00] VITALS: BP 168/79
[2020-05-16] MEDS: MIDODRINE HCL 5 MG TABLET PO SCH (14:13)
[2020-05-16] MEDS: OCTREOTIDE ACETATE 100 MCG/ML AMP SQ SCH (14:14)
[2020-05-16 16:00] VITALS: BP 151/77
[2020-05-16 20:04] VITALS: BP 165/72
[2020-05-16] MEDS: ATORVASTATIN 10 MG TABLET PO SCH (23:57)
[2020-05-16] MEDS: CEFTRIAXONE 1G VIAL IVP SCH (23:59)
[2020-05-17] MEDS: OCTREOTIDE ACETATE 100 MCG/ML AMP SQ SCH ×4 (00:01→22:32)
[2020-05-17 00:04] VITALS: BP 142/64
[2020-05-17 04:04] VITALS: BP 160/67
[2020-05-17] MEDS: ALBUMIN (HUMAN) 25% 50 ML IV SCH ×4 (05:26→22:33)
[2020-05-17] MEDS: MIDODRINE HCL 5 MG TABLET PO SCH ×4 (05:26→22:32)
[2020-05-17 05:52] LABS: HEMATOCRIT 24.8 % (42-54); MEAN CORPUSCULAR HEMOGLOBIN 30.5 pg (27.0-33.0); MEAN CORPUSCULAR HGB CONC 33.1 g/dL (32.0-36.0); MEAN CORPUSCULAR VOLUME 92.2 fL (79-99); RED BLOOD CELL COUNT(AUTO) 2.69 MIL/uL (4.50-6.20); RED CELL DISTRIBUTION WIDTH 14.5 % (11.0-15.5); WHITE BLOOD COUNT (AUTO) 5.1 K/uL (4.8-10.8)
[2020-05-17] MEDS: IPRATROPIUM/ALBUTEROL SULFATE 3 ML SOLUTION IH SCH ×4 (06:11→19:49)
[2020-05-17 06:12] LABS: CREATININE 2.3 mg/dL (0.5-1.5)
[2020-05-17 06:31] LABS: PLATELET COUNT (AUTO) 108 K/uL (130-400)
[2020-05-17 08:00] VITALS: BP_SYST 117; BP_SYST 162; BP_DIAS 45; BP_DIAS 75
[2020-05-17] MEDS: LACTULOSE 20 GM/30 ML UDCUP PO SCH ×2 (09:00→20:57)
[2020-05-17] MEDS: HYDROCORTISONE 25 MG SUPPOSITORY PR SCH (09:00)
[2020-05-17] MEDS ORDERED: ONDANSETRON 4MG INJ ONE (09:57)
[2020-05-17] MEDS: AMLODIPINE 5 MG TAB PO SCH (09:59)
[2020-05-17] MEDS: TAMSULOSIN HCL 0.4 MG CAP.ER.24H PO SCH (09:59)
[2020-05-17] MEDS: PANTOPRAZOLE 40 MG TAB DR PO SCH ×2 (10:00→21:04)
[2020-05-17] MEDS ORDERED: ONDANSETRON 4MG INJ IVP PRN (10:00)
[2020-05-17 12:00] VITALS: BP 159/66
[2020-05-17 16:00] VITALS: BP 144/67
[2020-05-17 20:00] VITALS: BP 166/81
[2020-05-17] MEDS: ATORVASTATIN 10 MG TABLET PO SCH (21:04)
[2020-05-17] MEDS: CEFTRIAXONE 1G VIAL IVP SCH (21:05)
[2020-05-17] MEDS: LABETALOL 20MG VIAL IV PRN (21:09)
[2020-05-18] VITALS: BP 149/66
[2020-05-18] MEDS: IPRATROPIUM/ALBUTEROL SULFATE 3 ML SOLUTION IH SCH ×2 (01:09→07:18)
[2020-05-18 04:00] VITALS: BP 153/76
[2020-05-18] MEDS: OCTREOTIDE ACETATE 100 MCG/ML AMP SQ SCH (05:20)
[2020-05-18] MEDS: ALBUMIN (HUMAN) 25% 50 ML IV SCH (05:20)
[2020-05-18] MEDS: MIDODRINE HCL 5 MG TABLET PO SCH (05:22)
[2020-05-18 05:55] LABS: POTASSIUM 4.1 mmol/L (3.5-5.1)
[2020-05-18 07:13] VITALS: BP 154/73
[2020-05-18] MEDS: AMLODIPINE 5 MG TAB PO SCH (10:11)
[2020-05-18] MEDS: TAMSULOSIN HCL 0.4 MG CAP.ER.24H PO SCH (10:11)
[2020-05-18] MEDS: PANTOPRAZOLE 40 MG TAB DR PO SCH (10:11)
[2020-05-18] MEDS: LACTULOSE 20 GM/30 ML UDCUP PO SCH (10:12)
[2020-05-18] MEDS: HYDROCORTISONE 25 MG SUPPOSITORY PR SCH (10:12)
[2020-05-18 10:58] VITALS: BP 153/72
[2020-05-18 15:59] VITALS: BP 161/66
== END 2020-05-18 20:15 | disposition home or self-care (01) | DRG 432 ==
LOC: EDH 11:45 → EDHIP 14:19 → 3BH 21:20
PROVIDERS: ADMIT Internal Medicine; ATTEND Internal Medicine
PROC: 0W9G3ZZ Drainage of Peritoneal Cavity, Percutaneous Approach (ICD-10-PCS; principal; 2020-05-15)
DX: K70.31 Alcoholic cirrhosis of liver with ascites (principal); J18.9 Pneumonia, unspecified organism; K76.7 Hepatorenal syndrome; K65.2 Spontaneous bacterial peritonitis; K76.6 Portal hypertension; N17.9 Acute kidney failure, unspecified; Z68.41 Body mass index [BMI] 40.0-44.9, adult; J81.1 Chronic pulmonary edema; J98.11 Atelectasis; J91.8 Pleural effusion in other conditions classified elsewhere; E87.70 Fluid overload, unspecified; N18.9 Chronic kidney disease, unspecified; I12.9 Hypertensive chronic kidney disease with stage 1 through stage 4 chronic kidney disease, or unspecified chronic kidney disease; E78.00 Pure hypercholesterolemia, unspecified; D69.6 Thrombocytopenia, unspecified; G47.30 Sleep apnea, unspecified; D63.1 Anemia in chronic kidney disease; E11.22 Type 2 diabetes mellitus with diabetic chronic kidney disease; E66.9 Obesity, unspecified; E78.5 Hyperlipidemia, unspecified; Z20.822 Contact with and (suspected) exposure to COVID-19; G51.0 Bell's palsy; Z79.4 Long term (current) use of insulin; Z86.73 Personal history of transient ischemic attack (TIA), and cerebral infarction without residual deficits; Z87.891 Personal history of nicotine dependence; Z79.899 Other long term (current) drug therapy
CPT/HCPCS: 36415; 49083; 71045; 71250; 76770; 80048; 80053; 81001; 82040; 82140; 82550; 82607; 82728; 82948; 83605; 83615; 83735; 83880; 84100; 84145; 84155; 84484; 85025; 85027; 85610; 85730; 87040; 87071; 87205; 87426; 89051; 93005; 93970; 94640; 94664; 99291; C1729; G0378; J0696; J1940; J2354; J2405; J2543; J2920; J3490; P9046; P9047; U0003

== ENCOUNTER 2020-05-25 16:56 | Inpatient (IN) | payer OTHER ==
[~2020-05-25] VITALS: Ht 162.6 cm; Wt 115.3 kg
[~2020-05-25 16:56] MED LIST changes: -FURO40TA7 PO; -HYDR12.54 PO; +TIZA2CAP9 PO; +VITAMIN D PO
[2020-05-25 19:37] LABS: BASOPHILS % (AUTO) 0.4 % (0.0-5.0); EOSINOPHILS % (AUTO) 7.5 % (0.0-8.0); HEMATOCRIT 26.1 % (42-54); MEAN CORPUSCULAR HEMOGLOBIN 31.2 pg (27.0-33.0); MEAN CORPUSCULAR HGB CONC 33.7 g/dL (32.0-36.0); MEAN CORPUSCULAR VOLUME 92.6 fL (79-99); MONOCYTES % (AUTO) 9.3 % (3.0-13.0); NEUTROPHILS % (AUTO) 64.6 % (40.0-77.0); PLATELET COUNT (AUTO) 79 K/uL (130-400); RED BLOOD CELL COUNT(AUTO) 2.82 MIL/uL (4.50-6.20); WHITE BLOOD COUNT (AUTO) 5.6 K/uL (4.8-10.8)
[2020-05-25 19:51] LABS: BILIRUBIN,TOTAL 0.7 mg/dL (0.2-1.0)
[2020-05-25 20:01] LABS: B-TYPE NATRIURETIC PEPTIDE 215 pg/mL (0-100)
[2020-05-25 20:12] LABS: INR 1.04 (0.85-1.15); PROTHROMBIN TIME 11.3 SEC (9.6-11.6)
[2020-05-25 20:14] LABS: PARTIAL THROMBOPLASTIN TIME 24.9 SEC (26.3-35.5)
[2020-05-25] MEDS ORDERED: FUROSEMIDE 40MG VIAL ONE (20:30)
[2020-05-25 21:42] LABS: APPEARANCE,URINE Clear (CLEAR); BILIRUBIN,URINE Negative (NEGATIVE); COLOR,URINE Yellow (YELLOW); GLUCOSE, URINE (UA) Negative (NEGATIVE); KETONES,URINE Negative (NEGATIVE); LEUKOCYTE ESTERASE ,URINE Trace (NEGATIVE); NITRATE,URINE Negative (NEGATIVE); OCCULT BLOOD,URINE Large (NEGATIVE); PROTEIN,URINE 300 mg/dL (NEGATIVE); UROBILINOGEN,URINE 0.2 mg/dL (0.2-1.0)
[2020-05-25 22:17] LABS: BACTERIA,URINE Rare /HPF (None Seen); SQUAMOUS EPITHELIAL CELL,UR Rare /HPF (0-2)
[2020-05-25] MEDS: NITROGLYCERIN 1GM OINT 1 INCH/1GM TD SCH (22:45)
[2020-05-25] MEDS ORDERED: ACETAMINOPHEN WITH CODEINE 1 TAB TAB PO PRN (22:45)
[2020-05-25] MEDS: HYDROCHLOROTHIAZIDE 25 MG TABLET PO SCH (23:00)
[2020-05-26 05:23] LABS: BASOPHILS % (AUTO) 0.5 % (0.0-5.0); EOSINOPHILS % (AUTO) 8.4 % (0.0-8.0); HEMATOCRIT 23.4 % (42-54); LYMPHOCYTES % (AUTO) 17.6 % (21.0-51.0); MEAN CORPUSCULAR HEMOGLOBIN 30.9 pg (27.0-33.0); MEAN CORPUSCULAR HGB CONC 33.8 g/dL (32.0-36.0); MEAN CORPUSCULAR VOLUME 91.4 fL (79-99); MONOCYTES % (AUTO) 10.2 % (3.0-13.0); NEUTROPHILS % (AUTO) 62.8 % (40.0-77.0); PLATELET COUNT (AUTO) 69 K/uL (130-400); RED BLOOD CELL COUNT(AUTO) 2.56 MIL/uL (4.50-6.20); RED CELL DISTRIBUTION WIDTH 14.7 % (11.0-15.5); WHITE BLOOD COUNT (AUTO) 4.3 K/uL (4.8-10.8)
[2020-05-26 05:29] LABS: B-TYPE NATRIURETIC PEPTIDE 227 pg/mL (0-100); CREATININE 1.9 mg/dL (0.5-1.5)
[2020-05-26] MEDS: NITROGLYCERIN 1GM OINT 1 INCH/1GM TD SCH ×3 (06:45→23:46)
[2020-05-26] MEDS: INSULIN HUMULIN R 100 UNIT/ML 3ML SQ SCH ×4 (07:30→21:00)
[2020-05-26] MEDS ORDERED: TIZANIDINE HCL 2 MG TABLET ONE (08:19)
[2020-05-26] MEDS ORDERED: ASPIRIN 325 MG TABLET ONE (08:19)
[2020-05-26] MEDS ORDERED: LISINOPRIL 40 MG TABLET ONE (08:19)
[2020-05-26] MEDS ORDERED: ENOXAPARIN SODIUM 30 MG/0.3 ML SQ ONE (08:20)
[2020-05-26] MEDS ORDERED: TAMSULOSIN HCL 0.4 MG CAP.ER.24H ONE (08:20)
[2020-05-26] MEDS ORDERED: SPIRONOLACTONE 25 MG TAB ONE (08:20)
[2020-05-26] MEDS: ASPIRIN 325 MG TABLET PO SCH (09:00)
[2020-05-26] MEDS: SPIRONOLACTONE 25 MG TAB PO SCH (09:00)
[2020-05-26] MEDS ORDERED: ENOXAPARIN SODIUM 30 MG/0.3 ML SQ SCH (09:00)
[2020-05-26] MEDS: FUROSEMIDE 40MG VIAL IVP SCH ×2 (09:00→21:00)
[2020-05-26] MEDS: TAMSULOSIN HCL 0.4 MG CAP.ER.24H PO SCH (09:00)
[2020-05-26] MEDS: TIZANIDINE HCL 2 MG TABLET PO SCH ×2 (09:00→21:00)
[2020-05-26] MEDS ORDERED: LISINOPRIL 40 MG TABLET PO SCH (09:00)
[2020-05-26] MEDS: CEFTRIAXONE 1G VIAL IVP SCH (09:30)
[2020-05-26] MEDS ORDERED: CEFTRIAXONE 1G VIAL ONE (09:34)
[2020-05-26 15:42] LABS: HEMATOCRIT 23.6 % (42-54)
[2020-05-26] MEDS ORDERED: HYDRALAZINE 20MG/ML VIAL ONE ×2 (16:10→22:01)
[2020-05-26] MEDS: ATORVASTATIN 20 MG TABLET PO SCH (21:00)
[2020-05-26 21:28] LABS: HEMATOCRIT 25.7 % (42-54)
[2020-05-26] MEDS ORDERED: ACETAMINOPHEN WITH CODEINE 1 TAB TAB ONE (22:08)
[2020-05-26] MEDS: HYDROCHLOROTHIAZIDE 25 MG TABLET PO SCH (23:00)
[2020-05-27] VITALS (15 sets, daily range): BP systolic 102–173; BP diastolic 42–93
[2020-05-27] MEDS: INSULIN HUMULIN R 100 UNIT/ML 3ML SQ SCH ×4 (05:25→19:47)
[2020-05-27] MEDS: NITROGLYCERIN 1GM OINT 1 INCH/1GM TD SCH ×3 (05:29→22:44)
[2020-05-27 06:02] LABS: HEMATOCRIT 22.7 % (42-54); MEAN CORPUSCULAR HEMOGLOBIN 30.9 pg (27.0-33.0); MEAN CORPUSCULAR HGB CONC 33.5 g/dL (32.0-36.0); MEAN CORPUSCULAR VOLUME 92.3 fL (79-99); RED BLOOD CELL COUNT(AUTO) 2.46 MIL/uL (4.50-6.20); RED CELL DISTRIBUTION WIDTH 14.8 % (11.0-15.5); WHITE BLOOD COUNT (AUTO) 3.9 K/uL (4.8-10.8)
[2020-05-27 06:12] LABS: INR 1.1 (0.85-1.15); PROTHROMBIN TIME 11.9 SEC (9.6-11.6)
[2020-05-27 06:14] LABS: PARTIAL THROMBOPLASTIN TIME 25.8 SEC (26.3-35.5)
[2020-05-27 06:19] LABS: ALBUMIN 1.7 g/dL (3.5-5.0); BILIRUBIN,TOTAL 0.9 mg/dL (0.2-1.0); CREATININE 2.1 mg/dL (0.5-1.5); POTASSIUM 5.1 mmol/L (3.5-5.1); TOTAL PROTEIN, SERUM 4.4 g/dL (6.0-8.3)
[2020-05-27 08:54] LABS: HEMATOCRIT 22.6 % (42-54)
[2020-05-27] MEDS: FUROSEMIDE 40MG VIAL IVP SCH ×2 (09:07→19:47)
[2020-05-27] MEDS: SPIRONOLACTONE 25 MG TAB PO SCH (09:08)
[2020-05-27] MEDS: ASPIRIN 325 MG TABLET PO SCH (09:09)
[2020-05-27] MEDS: CEFTRIAXONE 1G VIAL IVP SCH (09:11)
[2020-05-27] MEDS: TAMSULOSIN HCL 0.4 MG CAP.ER.24H PO SCH (09:11)
[2020-05-27] MEDS: TIZANIDINE HCL 2 MG TABLET PO SCH ×2 (09:28→19:47)
[2020-05-27] MEDS ORDERED: ALBUMIN (HUMAN) 25% 100 ML IV SCH (11:30)
[2020-05-27 12:22] LABS: APPEARANCE BODY FLUID CLOUDY (CLEAR); SPECIMENTYPE,BODY FLUID ASCITES
[2020-05-27 12:23] LABS: BODY FLUID RBC 132 /cu. mm.; BODY FLUID WBC 102 /cu. mm.; COLOR,BODY FLUID OTHER (LT YELLOW); TOTAL VOLUME,BODY FLUID 3800 mL
[2020-05-27 12:28] LABS: BF LYMPHOCYTE 2 %; BF MESOTHELIAL 70 %; BF MONOCYTE 22 %
[2020-05-27 15:10] LABS: HEMATOCRIT 20.7 % (42-54)
[2020-05-27] MEDS ORDERED: ALPRAZOLAM 0.5 MG TABLET PO PRN (16:30)
[2020-05-27] MEDS: ATORVASTATIN 20 MG TABLET PO SCH (19:47)
[2020-05-28] VITALS (22 sets, daily range): BP systolic 112–170; BP diastolic 49–73
[2020-05-28] MEDS: FUROSEMIDE 40MG VIAL IV SCH ×2 (02:06→12:48)
[2020-05-28 05:49] LABS: HEMATOCRIT 23.3 % (42-54); MEAN CORPUSCULAR HEMOGLOBIN 31.3 pg (27.0-33.0); MEAN CORPUSCULAR HGB CONC 34.3 g/dL (32.0-36.0); RED BLOOD CELL COUNT(AUTO) 2.56 MIL/uL (4.50-6.20); RED CELL DISTRIBUTION WIDTH 15.4 % (11.0-15.5); WHITE BLOOD COUNT (AUTO) 3.5 K/uL (4.8-10.8)
[2020-05-28 06:02] LABS: BILIRUBIN,TOTAL 0.7 mg/dL (0.2-1.0); CREATININE 2.2 mg/dL (0.5-1.5); POTASSIUM 4.5 mmol/L (3.5-5.1); TOTAL PROTEIN, SERUM 4.4 g/dL (6.0-8.3)
[2020-05-28 06:03] LABS: INR 1.09 (0.85-1.15); PROTHROMBIN TIME 11.8 SEC (9.6-11.6)
[2020-05-28 06:04] LABS: PARTIAL THROMBOPLASTIN TIME 26.9 SEC (26.3-35.5)
[2020-05-28] MEDS: NITROGLYCERIN 1GM OINT 1 INCH/1GM TD SCH ×3 (06:08→23:03)
[2020-05-28] MEDS: INSULIN HUMULIN R 100 UNIT/ML 3ML SQ SCH ×4 (06:08→20:24)
[2020-05-28] MEDS: ASPIRIN 325 MG TABLET PO SCH ×2 (09:00→12:47)
[2020-05-28] MEDS: TIZANIDINE HCL 2 MG TABLET PO SCH ×3 (09:00→20:23)
[2020-05-28] MEDS: SPIRONOLACTONE 25 MG TAB PO SCH ×2 (09:00→12:44)
[2020-05-28] MEDS: TAMSULOSIN HCL 0.4 MG CAP.ER.24H PO SCH ×2 (09:00→12:46)
[2020-05-28] MEDS: CEFTRIAXONE 1G VIAL IVP SCH (09:15)
[2020-05-28] MEDS: FUROSEMIDE 40MG VIAL IVP SCH ×2 (09:19→20:23)
[2020-05-28] MEDS ORDERED: LIDOCAINE HCL 1% 20 ML VIAL ONE (11:44)
[2020-05-28] MEDS ORDERED: PROPOFOL 10 MG/ML 20ML VIAL IV ONE (11:44)
[2020-05-28] MEDS: HYDRALAZINE 20MG/ML VIAL IV PRN (12:51)
[2020-05-28] MEDS: ATORVASTATIN 20 MG TABLET PO SCH (20:23)
[2020-05-29 05:34] VITALS: BP 140/62
[2020-05-29 05:39] LABS: HEMATOCRIT 21.5 % (42-54); MEAN CORPUSCULAR HEMOGLOBIN 31.1 pg (27.0-33.0); MEAN CORPUSCULAR VOLUME 91.5 fL (79-99); RED BLOOD CELL COUNT(AUTO) 2.35 MIL/uL (4.50-6.20); RED CELL DISTRIBUTION WIDTH 15.5 % (11.0-15.5); WHITE BLOOD COUNT (AUTO) 3.2 K/uL (4.8-10.8)
[2020-05-29 06:02] LABS: CREATININE 2.1 mg/dL (0.5-1.5); POTASSIUM 4.3 mmol/L (3.5-5.1)
[2020-05-29] MEDS: NITROGLYCERIN 1GM OINT 1 INCH/1GM TD SCH (06:17)
[2020-05-29] MEDS: INSULIN HUMULIN R 100 UNIT/ML 3ML SQ SCH ×4 (06:18→21:00)
[2020-05-29 08:00] VITALS: BP 190/71
[2020-05-29] MEDS: CEFTRIAXONE 1G VIAL IVP SCH (08:18)
[2020-05-29] MEDS: TIZANIDINE HCL 2 MG TABLET PO SCH ×2 (08:19→20:00)
[2020-05-29] MEDS: FUROSEMIDE 40MG VIAL IVP SCH (08:19)
[2020-05-29] MEDS ORDERED: LACT10SO9 PO (10:51)
[2020-05-29] MEDS ORDERED: FURO40TA7 PO (10:51)
[2020-05-29] MEDS ORDERED: FERS325 PO (10:51)
[2020-05-29] MEDS ORDERED: CEFD300C3 PO (10:51)
[2020-05-29] MEDS ORDERED: PANT40TA55 PO (10:52)
[2020-05-29] MEDS ORDERED: Vitamin B Complex/Vit C/Folic Acid PO SCH (11:00)
[2020-05-29] MEDS ORDERED: PANTOPRAZOLE 40 MG TAB DR PO SCH (11:00)
[2020-05-29] MEDS ORDERED: COMPOUND IV MISC 1 EACH IVSOLN MISC PRN (11:45)
[2020-05-29] MEDS: IRON SUCROSE COMPLEX 100 MG in 0.9%NACL 50ML 50 ML IV SCH (11:47)
[2020-05-29] MEDS: ASPIRIN 81 MG EC TAB PO SCH (11:47)
[2020-05-29 11:52] VITALS: BP 143/63
[2020-05-29 16:00] VITALS: BP 181/67
[2020-05-29] MEDS: FUROSEMIDE 40 MG TABLET PO SCH (16:43)
[2020-05-29] MEDS: HYDRALAZINE 20MG/ML VIAL IV PRN ×2 (16:44→20:07)
[2020-05-29] MEDS: FUROSEMIDE 40MG VIAL IV SCH (18:20)
[2020-05-29 20:00] VITALS: BP 179/65
[2020-05-29] MEDS: ATORVASTATIN 20 MG TABLET PO SCH (20:00)
[2020-05-29 23:50] VITALS: BP 156/57
[2020-05-30 04:00] VITALS: BP 165/66
[2020-05-30] MEDS: HYDRALAZINE 20MG/ML VIAL IV PRN (04:00)
[2020-05-30] MEDS: INSULIN HUMULIN R 100 UNIT/ML 3ML SQ SCH ×2 (05:54→11:09)
[2020-05-30 05:58] LABS: HEMATOCRIT 25.5 % (42-54); MEAN CORPUSCULAR HEMOGLOBIN 31.2 pg (27.0-33.0); MEAN CORPUSCULAR HGB CONC 34.1 g/dL (32.0-36.0); MEAN CORPUSCULAR VOLUME 91.4 fL (79-99); RED BLOOD CELL COUNT(AUTO) 2.79 MIL/uL (4.50-6.20); RED CELL DISTRIBUTION WIDTH 15.4 % (11.0-15.5); WHITE BLOOD COUNT (AUTO) 4.6 K/uL (4.8-10.8)
[2020-05-30 06:10] LABS: POTASSIUM 3.8 mmol/L (3.5-5.1)
[2020-05-30] MEDS ORDERED: PANTOPRAZOLE 40 MG TAB DR ONE (06:18)
[2020-05-30] MEDS ORDERED: PANTOPRAZOLE 40 MG TAB DR PO SCH (07:30)
[2020-05-30 08:25] VITALS: BP 188/65
[2020-05-30] MEDS: IRON SUCROSE COMPLEX 100 MG in 0.9%NACL 50ML 50 ML IV SCH (08:36)
[2020-05-30] MEDS: CEFTRIAXONE 1G VIAL IVP SCH (08:36)
[2020-05-30] MEDS: ASPIRIN 81 MG EC TAB PO SCH (08:36)
[2020-05-30] MEDS: TAMSULOSIN HCL 0.4 MG CAP.ER.24H PO SCH (08:36)
[2020-05-30] MEDS: SPIRONOLACTONE 25 MG TAB PO SCH (08:37)
[2020-05-30] MEDS: FUROSEMIDE 40 MG TABLET PO SCH (08:37)
[2020-05-30] MEDS: TIZANIDINE HCL 2 MG TABLET PO SCH (08:38)
[2020-05-30] MEDS ORDERED: AMLODIPINE 5 MG TAB PO SCH (09:00)
[2020-05-30] MEDS ORDERED: Vitamin B Complex/Vit C/Folic Acid PO SCH (09:00)
[2020-05-30 11:59] VITALS: BP 123/48
[2020-05-30] MEDS ORDERED: LISI20TA24 PO (12:27)
[2020-05-30] MEDS ORDERED: CLON0.1T PO (12:29)
== END 2020-05-30 15:00 | disposition home or self-care (01) | DRG 432 ==
LOC: EDH 16:56 → EDHIP 22:40 → OBSVTOIN 22:40 → EDHIP 05-26 10:44 → 3AH 05-26 22:18
PROVIDERS: ADMIT Internal Medicine; ATTEND Internal Medicine
PROC: 30233N1 Transfusion of Nonautologous Red Blood Cells into Peripheral Vein, Percutaneous Approach (ICD-10-PCS; principal; 2020-05-27)
PROC: 0W9G3ZZ Drainage of Peritoneal Cavity, Percutaneous Approach (ICD-10-PCS; 2020-05-27)
PROC: 0DJ08ZZ Inspection of Upper Intestinal Tract, Via Natural or Artificial Opening Endoscopic (ICD-10-PCS; 2020-05-28)
DX: K74.60 Unspecified cirrhosis of liver (principal); K76.7 Hepatorenal syndrome; I13.0 Hypertensive heart and chronic kidney disease with heart failure and stage 1 through stage 4 chronic kidney disease, or unspecified chronic kidney disease; R18.8 Other ascites; D62 Acute posthemorrhagic anemia; N17.9 Acute kidney failure, unspecified; N18.4 Chronic kidney disease, stage 4 (severe); Z68.41 Body mass index [BMI] 40.0-44.9, adult; J91.8 Pleural effusion in other conditions classified elsewhere; K92.1 Melena; I50.9 Heart failure, unspecified; R19.7 Diarrhea, unspecified; Z20.822 Contact with and (suspected) exposure to COVID-19; K31.89 Other diseases of stomach and duodenum; D69.6 Thrombocytopenia, unspecified; E87.8 Other disorders of electrolyte and fluid balance, not elsewhere classified; D63.1 Anemia in chronic kidney disease; E11.22 Type 2 diabetes mellitus with diabetic chronic kidney disease; E66.01 Morbid (severe) obesity due to excess calories; G47.33 Obstructive sleep apnea (adult) (pediatric); E78.5 Hyperlipidemia, unspecified; Z79.4 Long term (current) use of insulin; Z79.899 Other long term (current) drug therapy; Z82.3 Family history of stroke; Z83.3 Family history of diabetes mellitus; Z82.49 Family history of ischemic heart disease and other diseases of the circulatory system; E87.70 Fluid overload, unspecified
CPT/HCPCS: 36415; 36430; 43235; 49083; 71045; 80048; 80053; 81001; 82140; 82270; 82550; 82948; 83540; 83550; 83605; 83690; 83880; 84484; 85014; 85018; 85025; 85027; 85610; 85730; 86850; 86900; 86901; 86923; 87040; 87071; 87205; 87426; 89051; 93005; 93970; A4606; C1729; G0378; J0360; J0696; J1650; J1756; J1940; J2704; J7030; P9016; P9046; U0003

== ENCOUNTER 2020-08-25 05:49 | Day surgery (SDC) | payer OTHER ==
[~2020-08-25] VITALS: Ht 162.6 cm; Wt 93.0 kg
[~2020-08-25 05:49] MED LIST changes: +CEFD300C3 PO; +CLON0.1T PO; +FERS325 PO; +FURO40TA7 PO; +LACT10SO9 PO; +LISI20TA24 PO; -LISI40TA9 PO; +PANT40TA55 PO; -POTA-202 PO
[2020-08-25] MEDS ORDERED: 0.9%NACL 1000ML 1,000 ML IV ONE (06:13)
[2020-08-25 06:37] VITALS: BP 154/50
[2020-08-25] MEDS ORDERED: AEC81 PO (07:15)
[2020-08-25] MEDS ORDERED: PROP40TA7 PO (07:15)
[2020-08-25] MEDS ORDERED: RIFA550T PO (07:15)
[2020-08-25] MEDS ORDERED: PROPOFOL 10 MG/ML 20ML VIAL IV ONE (07:30)
[2020-08-25] MEDS ORDERED: ATROPINE 1MG SYG IVP ONE (07:31)
[2020-08-25] MEDS ORDERED: SUCCINYLCHOLINE 200MG/10ML SYR ONE (07:31)
[2020-08-25] MEDS ORDERED: LIDOCAINE HCL 1% 20 ML VIAL ONE (07:31)
[2020-08-25 08:25] VITALS: BP 139/63
[2020-08-25 08:40] VITALS: BP 156/55
[2020-08-25 08:55] VITALS: BP 143/61
[2020-08-25 09:10] VITALS: BP 140/57
== END 2020-08-25 09:10 | disposition home or self-care (01) ==
LOC: DAH 05:49 → ENDO 05:49
PROVIDERS: ATTEND Internal Medicine Gastroenterology
DX: Z09 Encounter for follow-up examination after completed treatment for conditions other than malignant neoplasm (principal); K70.31 Alcoholic cirrhosis of liver with ascites; B96.81 Helicobacter pylori [H. pylori] as the cause of diseases classified elsewhere; R19.7 Diarrhea, unspecified; E78.2 Mixed hyperlipidemia; I10 Essential (primary) hypertension; E11.9 Type 2 diabetes mellitus without complications; G47.30 Sleep apnea, unspecified; Z99.89 Dependence on other enabling machines and devices; Z20.822 Contact with and (suspected) exposure to COVID-19
CPT/HCPCS: 45378; 82948 ×2; 87635 ×2; A4215; A4221; A4222; A4223; A4606; A4620; A4657; A4663; C9803 ×2; J0330; J0461; J2704; J7030

== ENCOUNTER 2020-08-27 19:50 | Emergency (ER) | payer OTHER ==
[2020-08-27] VITALS (8 sets, daily range): BP systolic 134–155; BP diastolic 53–63
[~2020-08-27] VITALS: Ht 162.6 cm; Wt 93.0 kg
[~2020-08-27 19:50] MED LIST changes: +AEC81 PO; -CEFD300C3 PO; -PANT40TA55 PO; +PROP40TA7 PO; +RIFA550T PO
[2020-08-27 20:17] LABS: BASOPHILS % (AUTO) 0.3 % (0.0-5.0); EOSINOPHILS % (AUTO) 1.3 % (0.0-8.0); LYMPHOCYTES % (AUTO) 12.8 % (21.0-51.0); MEAN CORPUSCULAR HEMOGLOBIN 32.4 pg (27.0-33.0); MEAN CORPUSCULAR HGB CONC 33.4 g/dL (32.0-36.0); NEUTROPHILS % (AUTO) 74.3 % (40.0-77.0); PLATELET COUNT (AUTO) 83 K/uL (130-400); RED BLOOD CELL COUNT(AUTO) 2.99 MIL/uL (4.50-6.20); RED CELL DISTRIBUTION WIDTH 13.4 % (11.0-15.5); WHITE BLOOD COUNT (AUTO) 6.3 K/uL (4.8-10.8)
[2020-08-27 20:27] LABS: CREATININE 1.2 mg/dL (0.5-1.5); POTASSIUM 4.2 mmol/L (3.5-5.1)
[2020-08-27 20:30] LABS: INR 1.07 (0.85-1.15); PROTHROMBIN TIME 11.6 SEC (9.6-11.6)
[2020-08-27] MEDS ORDERED: 0.9%NACL 1000ML 1,000 ML IV ONE ×2 (20:30→22:07)
[2020-08-27 20:31] LABS: PARTIAL THROMBOPLASTIN TIME 23.4 SEC (26.3-35.5)
[2020-08-27 20:32] LABS: ALBUMIN 2.5 g/dL (3.5-5.0); BILIRUBIN,TOTAL 2.3 mg/dL (0.2-1.0); TOTAL PROTEIN, SERUM 5.7 g/dL (6.0-8.3)
[2020-08-27 20:45] LABS: B-TYPE NATRIURETIC PEPTIDE 187 pg/mL (0-100)
[2020-08-27 21:38] LABS: APPEARANCE,URINE Clear (CLEAR); BILIRUBIN,URINE Negative (NEGATIVE); COLOR,URINE Yellow (YELLOW); GLUCOSE, URINE (UA) Negative (NEGATIVE); KETONES,URINE Negative (NEGATIVE); LEUKOCYTE ESTERASE ,URINE Trace (NEGATIVE); NITRATE,URINE Negative (NEGATIVE); OCCULT BLOOD,URINE Large (NEGATIVE); PH,URINE 5.5 (5.0-8.0); PROTEIN,URINE POS 2+ mg/dL (NEGATIVE)
[2020-08-27 21:45] LABS: BACTERIA,URINE Rare /HPF (None Seen); RBC,URINE 0-1 /HPF (0-1); SQUAMOUS EPITHELIAL CELL,UR None Seen /HPF (0-2); WBC,URINE 0-1 /HPF (0-1)
[2020-08-28 00:54] VITALS: BP 133/55
== END 2020-08-28 02:05 | disposition home or self-care (01) ==
LOC: EDH 20:16
DX: E86.0 Dehydration (principal); R55 Syncope and collapse; I10 Essential (primary) hypertension; E11.649 Type 2 diabetes mellitus with hypoglycemia without coma; E78.00 Pure hypercholesterolemia, unspecified; Z98.890 Other specified postprocedural states; Z79.4 Long term (current) use of insulin; Z79.82 Long term (current) use of aspirin; Z79.899 Other long term (current) drug therapy
CPT/HCPCS: 36415; 70450; 71045; 80053; 81001; 82140; 82550; 82948 ×2; 83880; 84484; 85025; 85610; 85730; 93005; 96360; 99285; J7030